=== PATIENT | male | born 1945 | race Caucasian/White ===

== ENCOUNTER → 2016-12-09 | Day surgery (SDC) | payer OTHER ==
[~2016-12-09] VITALS: Ht 175.3 cm; Wt 142.9 kg
[~2016-12-09] MED LIST: ASCO500C6 PO; ATRV10T PO; BISA10SU61 RC; DIGO250T72 PO; DILT360C30 PO; FERR325T6 PO; FUR20 PO; FURO-128 PO; IBUP-1827 PO; LOSA100T29 PO; Lactated Ringer's 1,000 ML IV ONE; Lactated Ringer's 1,000 ML IV SCH; MAGN400O4 PO; MetoCLOpramide 5 mg/mL 2 mL Inj IVPUSH PRN; NA P133E23 RC; OMEP20CA11 PO; Ondansetron 2 mg/mL 2 mL Inj IVPUSH PRN; PANT40TA3 PO; POTA1POW11 PO; Propofol 10,000 mCg/mL 20 mL Inj ONE; TAMS0.4C98 PO; WARF7.5T PO
[2016-12-09 11:51] VITALS: BP 141/75; PULSE 46; RESP 15; O2SAT 94
[2016-12-09 12:31] VITALS: BP 114/73; PULSE 59; RESP 14; O2SAT 94
[2016-12-09 12:48] VITALS: BP 121/62; PULSE 57; RESP 16; O2SAT 96
[2016-12-09 12:51] VITALS: BP 127/53; PULSE 67; RESP 16; O2SAT 95
--- NOTE | 2016-12-09 13:53 | ENDO ---
[address] [address] ENDOSCOPY PROCEDURE PATIENT: BRITT BERNARDO : 1945 MR#: [id number] ADMIT: 12/09/2016 JOB ID: [id number] DATE OF SERVICE: 12/09/2016 TYPE OF OPERATION: Colonoscopy, biopsy. PREOPERATIVE DIAGNOSIS(ES): History of tubular adenoma polyps. POSTOPERATIVE DIAGNOSIS(ES): 1. Moderate sigmoid diverticulosis. 2. One polyp removed in the sigmoid colon, status post biopsy, and one hemoclip placed post polypectomy site. 3. A 3 mm polyp removed from the cecum. 4. Possible polyps seen near the appendiceal orifice which was biopsied. ANESTHESIA: Monitored anesthesia care. COMPLICATIONS: None. BLOOD LOSS: Minimal. DESCRIPTION OF PROCEDURE: After risks and benefits explained to the patient, informed consent was obtained. After anesthesia administered, colonoscope was then inserted from the rectum up to cecum. Mucosa carefully examined. Prep of the patient was fair. After the procedure was done, the scope withdrawn, procedure terminated. FINDINGS: Upon inspection of the anus, no masses, hemorrhoids, ulcers, or fissures that were seen. Throughout the entire examination, there was moderate sigmoid diverticulosis. There was also a 3 mm polyp that was removed by cold biopsy forceps with some oozing afterwards. A hemoclip was placed at this region with good hemostasis. There was also a 3 mm polyp seen in the cecum, removed by cold biopsy forceps. There were multiple bumps which appear to be polyps noted to the appendiceal orifice which was biopsied. Retroflexion was normal. IMPRESSIONS: 1. Moderate sigmoid diverticulosis. 2. A 3 mm sigmoid colon polyp removed by cold biopsy forceps. Status post hemoclip post polypectomy site. 3. A 3 mm polyp seen in the cecum, removed by cold biopsy forceps. 4. Appeared to be multiple polyps seen at appendiceal orifice which was biopsied. RECOMMENDATION: 1. Await pathology results. 2. Repeat colonoscopy in one year, given his history. 3. Hold Coumadin for 48 hours. If no overt signs of bleeding, then okay to restart Coumadin. 4. Follow up in GI clinic as needed.
--- NOTE | 2016-12-09 16:19 | PCM.ANEP1 ---
Post Anesthesia PACU Phase 1 Assessment Vital Signs Vital Signs Date Time Temp Pulse Resp B/P Pulse Ox O2 Delivery O2 Flow Rate FiO2 12/09/16 12:51 67 16 127/53 95 Room Air 12/09/16 12:48 57 16 121/62 96 Room Air 12/09/16 12:31 59 14 114/73 94 Room Air 12/09/16 11:51 36.7 46 15 141/75 94 Room Air Anesthetic Administered: MAC Level of Alertness: Awake, talking PATTON's with Equal Strength: Yes Pain: No Nausea or Vomiting: No CV Function & Hydration Stable: No Airway Device: Oxygen Delivery: Room Air Lungs: Clear to Auscultation, Normal Air Movement Dermatome Level: Full Sensation PACU Phase 2 Assessment Complications: No Follow up Care: N/A Patient Instructions Provided: N/A Aaron Sawyer MD Dec 09, 2016 16:19
--- NOTE | 2016-12-09 16:19 | PCM.HPANE ---
Patient Data Surgeon Admitting Provider: Attending Provider:Baljinder Soriano MD Primary Care Physician:Aaron Bolanos MD Other Provider:[facility] Reason for Visit Adenomatous Polyp Of Colon Ht/WT & BMI Body Mass Index Allergies Coded Allergies: acetaminophen (Verified Allergy, Severe, HALLUCINATIONS, 12/08/16) Past Anesthesia History Anesthesia History: Denies:: Abnormal Airway, Anesthesia Reactions, Difficult Intubation, Fam Anesthesia Reaction, Fam Malignant Hypertherm, Malignant Hyperthermia Diabetes History Hx Diabetes?: No MRSA MRSA: No Medications Reported Medications Tamsulosin (Flomax)0.4 Mg Capsule0.2 Mg PO DAILY Ref 0 12/08/16 Potassium Chlorate 100 % Powder1 Gm PO DAILY 12/08/16 Omeprazole 20 Mg Capsule.dr20 Mg PO DAILY Ref 0 12/08/16 Losartan Potassium 100 Mg Enavvp533 Mg PO DAILY 12/08/16 Furosemide (Lasix)40 Mg Qyaome52 Mg PO DAILY 30 Days Ref 0 12/08/16 Ibuprofen 600 Mg Pjsdie499 Mg PO QIDWM PRN For Pain Ref 0 12/08/16 Na Phos,M-B/Na Phos,Di-Ba (Fleet Enema)133 Ml Prvko905 Ml RC DIRECTED PRN For Constipation 12/08/16 Bisacodyl (Dulcolax Rectal)10 Mg Supp.rect10 Mg RC DAILY PRN For Constipation 30 Days Ref 0 12/08/16 Diltiazem ER 360 Mg Capsule.er360 Mg PO DAILY Ref 0 12/08/16 Digoxin 250 Mcg Bkyhuc963 Mcg PO DAILY #30 TABLET Ref 0 12/08/16 Warfarin Sodium (Coumadin)7.5 Mg Tablet7.5 Mg PO DAILY 30 Days Ref 0 12/08/16 Atorvastatin (Lipitor)10 Mg Tab10 Mg PO DAILY Ref 0 12/08/16 Ascorbic Acid (Vitamin C)500 Mg Capsule.er500 Mg PO DAILY 12/08/16 Discontinued Reported Medications Pantoprazole DR 40 Mg Tablet.dr40 Mg PO DAILY Ref 0 12/08/16 Magnesium Hydroxide (Milk of Magnesia)400 Mg/5 Ml Oral.ovkm717 Mg PO DAILY 12/08/16 Furosemide 20 Mg Tab20 Mg PO DAILY 30 Days Ref 0 12/08/16 Ferrous Sulfate 325 Mg Tablet.dr325 Mg PO DAILY 30 Days Ref 0 12/08/16 History History of ENT Problems?: Yes HEENT History: Positive for:: Cataracts (no surgery on) Dysphagia (from long hx of heartburn) Sinus Problem Denies:: Abnormal Airway Difficult Intubation Glaucoma Hearing Problem TMJ Denture Type: None Teeth Condition: Within Normal Limits Hx of Heart Problems?: Yes Cardiovascular History: Positive for:: Edema Hypertension Irregular Heartbeat (a fib) Thrombophlebitis Denies:: AICD Abdominal Aortic Aneurism Atrial Fibrillation Cardiac Surgery Chest Pain Congestive Heart Failure Coronary Artery Disease Heart Murmur Pacemaker Peripheral Vascular Rheumatic Fever Valvular Heart Disease Hx of Respiratory Problem?: Yes Respiratory History: Positive for:: Dyspnea (with exertion) Pneumonia Tuberculosis (tested positive, took medication 1988) Denies:: Asthma COPD Chest Surgery Cough Emphysema Hemoptysis Oxygen Administration Pulmonary Embolism Use of C-PAP Machine Use of Inhalers / NEBS Hx Neurologic Problems?: No Neurological History: Denies:: Alzheimer's Disease CVA Dementia Dizziness Headaches Multiple Sclerosis Parkinson's Disease Peripheral Neuropathy Seizures TIA Hx of GI Problems?: Yes Gastrointestinal History: Denies:: Cirrhosis Diverticulitis Gall Bladder Disease Gastroesphageal Reflux Gastrointestinal Bleeding Heartburn Hepatitis Hiatal Hernia Liver Disease Rectal Bleeding Hx of Problems?: Yes Genitourinary History: Positive for:: Kidney Stones (1959's) Urinary Tract Infection (one year ago) Denies:: HX of Hemodialysis HX of Peritoneal Dialysis: No Male Hx: Positive for:: Testicular Surgery (vasectomy) Denies:: Prostate Problems Scrotal Mass Skin History: Denies:: History Skin Disorders? Pressure Ulcers Hx Musculoskeletal Problems?: Yes Musculoskeletal History: Positive for:: Back Injury Denies:: Degenerative Joint Fibromyalgia Joint Replacement Musculoskeletal Trauma Myasthenia Gravis Osteoarthritis Rheumatoid Arthritis Systemic Lupus Hx of Psycho/Social Problems?: Yes Psycho Social History: Positive for:: Hx Depression Denies:: Anxiety Bipolar Disorder Suicide Attempt Hx Surgeries?: Yes (appy, vein stripping, inguinal hernia repair) Hx Any Other Health Problems?: No Other History: Positive for:: Hospitalization Denies:: Cancer Endocrine Disease Thyroid Disease History Blood Transfusions: Denies:: Accept Blood Products? Blood Transfuse Reaction Blood Transfusions Hx Diabetes: No Hx Alcohol Use: NoHx Substance Use: No Stop/Bang Risk Assessment Category Category 1A: Patient has history of documented sleep apnea, and HAS NOT received any narcotic, sedative or anesthesia administration during this stay. Category 1B: Patient has history of documented sleep apnea, and HAS received any narcotic , sedative or anesthesia administration during this stay Category 2: Patient has SUSPECTED Obstructive Sleep Apnea, and HAS received any narcotic , sedative or anesthesia administration during this stay. Category 3: Patient has SUSPECTED Obstructive Sleep Apnea and HAS NOT received narcotic, sedative or anesthesia administration during this stay. Category 4: Outpatient in Procedural Areas with known sleep apnea or who screen positive for High Risk via the STOP/BANG questionnaire. Exam Exam General Appearance: Alert, Oriented X3, Cooperative, No Acute Distress HEENT/AIRWAY: MP 2 Lungs: Clear to Auscultation, Normal Air Movement Heart: Exam Unremarkable, Regular Rate/Rhythm, No Murmurs/Rubs/Gallops Plan Impression Patient chart reviewed, patient interviewed and anesthestic plan with risks, benefits, and alternatives discussed, and informed consent obtained. NPO per Anesth. Guidelines: Yes ASA Physical Status: ASA3 Severe Disease (A fib) Anesthetic Plan: MAC Bene/Risks/Altern/Consents: Yes HP Complete Prior to Induction: Yes Aaron Sawyer MD Dec 09, 2016 07:24
--- NOTE | 2016-12-10 15:36 | PATH ---
SURGICAL PATHOLOGY Attending Physician:Baljinder Soriano MD CASE STATUS: Signed Out PATIENT NAME: BRITT BERNARDO PID: [id number] : 1945 DATE COLLECTED:12/09/2016 00:00 SPECIMEN: 1: Colon, Polyp 2: Colon, Biopsy 3: Colon, Polyp CLINICAL HISTORY: 1). CECAL POLYP 2). CECAL BIOPSY/APPENDICEAL, RULE OUT POLYP 3). SIGMOID POLYPS FINAL DIAGNOSIS: 1.CECUM, POLYP, BIOPSY: TUBULAR ADENOMA; NEGATIVE FOR HIGH-GRADE DYSPLASIA. 2.CECUM/APPENDIX, BIOPSY: PORTIONS OF COLORECTAL MUCOSA WITH A PROMINENT LYMPHOID AGGREGATE. NO DEFINITE POLYP IDENTIFIED. 3.SIGMOID COLON, POLYPS, BIOPSIES: SUPERFICIAL PORTIONS OF COLORECTAL MUCOSA X2 WITH PROMINENT LYMPHOID AGGREGATES. ICD10 K63.5 GROSS DESCRIPTION: The specimen is received in three formalin filled containers labeled with the patient's name. 1). The specimen is labeled "cecal polyp" and consists of a 0.3 x 0.3 x 0.2 CM portion of tissue which is entirely submitted in cassette 1A. 2). The specimen is labeled "cecal" and consists of a 0.4 x 0.2 x 0.1 CM portion of tissue. The specimen is entirely submitted in cassette 2A. 3). The specimen is labeled "sigmoid polyp" and consists of a 0.5 x 0.2 x 0.1 CM portion of tissue. The specimen is entirely submitted in cassette 3A. 12/10/2016DC MICRO DESCRIPTION: See diagnosis. ICD-9 CODES: CPT CODES: 1: 09025 2: 97237 3: 24148 Electronically Signed Out China Ennis MD [facility] Pathology [facility], [place] [address] Technical component performed at [facility], [facility] [address], [place], [address]
== END | disposition home or self-care (01) ==
LOC: END 00:23
PROVIDERS: ATTEND Internal Medicine Gastroenterology
DX: Z12.11 Encounter for screening for malignant neoplasm of colon (principal); D12.0 Benign neoplasm of cecum; K63.5 Polyp of colon; K57.30 Diverticulosis of large intestine without perforation or abscess without bleeding; Z86.010 Personal history of colon polyps; G47.33 Obstructive sleep apnea (adult) (pediatric); N40.0 Benign prostatic hyperplasia without lower urinary tract symptoms; I10 Essential (primary) hypertension; I48.91 Unspecified atrial fibrillation; Z86.718 Personal history of other venous thrombosis and embolism; Z79.01 Long term (current) use of anticoagulants
CPT/HCPCS: 45380; 88305; J7120